=== PATIENT | male | born 1955 | race Hispanic/Latino ===

== ENCOUNTER → 2017-09-08 | Outpatient (CLI) | payer MEDICARE ==
[~2017-09-08] MED LIST: ASPI-555 PO; ATOR20TA65 PO; CEPH500C2 PO; CHOL500045 PO; CLOP75TA32 PO; DICL50TA9 PO; FURO20TA4 PO; LISI40TA4 PO; METF10004 PO; METO-391 PO; MOME13HF2 IH; MULT1CAP32 PO; PANT40TA25 PO; PIOG30TA26 PO; SITA100T12 PO; TAMS0.4C32 PO; TRAM50TA4 PO
== END ==
LOC: SHCH 13:48
PROVIDERS: ATTEND Internal Medicine Cardiovascular Disease
DX: I10 Essential (primary) hypertension (principal)
CPT/HCPCS: 93306

== ENCOUNTER 2017-09-14 07:02 | Day surgery (SDC) | payer MEDICARE ==
[~2017-09-14] VITALS: Ht 175.3 cm; Wt 93.3 kg
[~2017-09-14 07:02] MED LIST changes: -ASPI-555 PO; -ATOR20TA65 PO; -CEPH500C2 PO; -CHOL500045 PO; -CLOP75TA32 PO; -DICL50TA9 PO; -FURO20TA4 PO; -LISI40TA4 PO; -METF10004 PO; -METO-391 PO; -MOME13HF2 IH; -MULT1CAP32 PO; -PANT40TA25 PO; -PIOG30TA26 PO; -SITA100T12 PO; +SODIUM CHLORIDE 0.9% 1000ML 1,000 ML IV ONE; -TAMS0.4C32 PO; -TRAM50TA4 PO
[2017-09-14 07:47] VITALS: BP 182/89
[2017-09-14] MEDS ORDERED: TRAM50TA4 PO (08:14)
[2017-09-14] MEDS ORDERED: FURO20TA4 PO (08:14)
[2017-09-14] MEDS ORDERED: ASPI-555 PO (08:14)
[2017-09-14] MEDS ORDERED: METF10004 PO (08:14)
[2017-09-14] MEDS ORDERED: METO-391 PO (08:15)
[2017-09-14] MEDS ORDERED: SITA100T12 PO (08:15)
[2017-09-14] MEDS ORDERED: LISI40TA4 PO (08:15)
[2017-09-14] MEDS ORDERED: CLOP75TA32 PO (08:15)
[2017-09-14] MEDS ORDERED: PIOG30TA26 PO (08:15)
[2017-09-14] MEDS ORDERED: DICL50TA9 PO (08:15)
[2017-09-14] MEDS ORDERED: PANT40TA25 PO (08:15)
[2017-09-14] MEDS ORDERED: MULT1CAP32 PO (08:15)
[2017-09-14] MEDS ORDERED: TAMS0.4C32 PO (08:15)
[2017-09-14 08:46] VITALS: BP 114/59
[2017-10-13] MEDS ORDERED: MOME13HF2 IH (13:16)
[2017-10-13] MEDS ORDERED: CEPH500C2 PO (13:16)
[2017-10-13] MEDS ORDERED: CHOL500045 PO (13:17)
[2017-10-20] MEDS ORDERED: ATOR20TA65 PO (07:15)
== END 2017-09-14 09:48 | disposition home or self-care (01) ==
LOC: DAH 07:02
PROVIDERS: ATTEND Internal Medicine Gastroenterology
DX: Z12.11 Encounter for screening for malignant neoplasm of colon (principal); Z68.41 Body mass index [BMI] 40.0-44.9, adult; Z79.899 Other long term (current) drug therapy; Z98.890 Other specified postprocedural states; Z88.8 Allergy status to other drugs, medicaments and biological substances; Z95.1 Presence of aortocoronary bypass graft; M19.90 Unspecified osteoarthritis, unspecified site; F32.9 Major depressive disorder, single episode, unspecified; K57.30 Diverticulosis of large intestine without perforation or abscess without bleeding
CPT/HCPCS: 82948 ×2; A4606; G0121; J7030

== ENCOUNTER → 2017-09-22 | Outpatient (CLI) | payer MEDICARE ==
[~2017-09-22] VITALS: Ht 175.3 cm; Wt 93.0 kg
[~2017-09-22] MED LIST changes: +ASPI-555 PO; +ATOR20TA65 PO; +CEPH500C2 PO; +CHOL500045 PO; +CLOP75TA32 PO; +DICL50TA9 PO; +FURO20TA4 PO; +LISI40TA4 PO; +METF10004 PO; +METO-391 PO; +MOME13HF2 IH; +MULT1CAP32 PO; +PANT40TA25 PO; +PIOG30TA70 PO; +REGADENOSON 0.4 MG/5 ML PF SYG IVP SCH; +SITA100T12 PO; -SODIUM CHLORIDE 0.9% 1000ML 1,000 ML IV ONE; +TAMS0.4C32 PO; +TRAM50TA4 PO
== END | disposition home or self-care (01) ==
LOC: SHCH 07:44
PROVIDERS: ATTEND Internal Medicine Cardiovascular Disease
DX: I25.10 Atherosclerotic heart disease of native coronary artery without angina pectoris (principal); I10 Essential (primary) hypertension
CPT/HCPCS: 78452; 93017; 96374; A9500 ×2; J2785

== ENCOUNTER → 2019-03-20 | Outpatient (CLI) | payer MEDICARE, OTHER ==
[~2019-03-20] MED LIST changes: +METF-446 PO; -METF10004 PO; -MULT1CAP32 PO; -REGADENOSON 0.4 MG/5 ML PF SYG IVP SCH
== END | disposition home or self-care (01) ==
LOC: RAH 14:14
PROVIDERS: ATTEND Physical Medicine & Rehabilitation
DX: M19.012 Primary osteoarthritis, left shoulder (principal); M51.36 Other intervertebral disc degeneration, lumbar region
CPT/HCPCS: 72114; 73030

== ENCOUNTER → 2019-04-25 | Outpatient (CLI) | payer OTHER | END | disposition home or self-care (01) | LOC: RAH 15:35 | PROVIDERS: ATTEND Physical Medicine & Rehabilitation | DX: M25.512 Pain in left shoulder (principal) | CPT/HCPCS: 73221 ==

== ENCOUNTER → 2019-06-28 | Outpatient (CLI) | payer OTHER | END | disposition home or self-care (01) | LOC: RAH 13:29 | PROVIDERS: ATTEND Physical Medicine & Rehabilitation | DX: M48.061 Spinal stenosis, lumbar region without neurogenic claudication (principal) | CPT/HCPCS: 72141; 72148 ==